=== PATIENT | female | born 1990 | race Caucasian/White ===

== ENCOUNTER 2021-05-16 22:39 | Emergency (ER) | payer OTHER ==
[~2021-05-16] VITALS: Ht 165.1 cm; Wt 91.7 kg
[~2021-05-16 22:39] MED LIST: ADDERALL 20 MG20 M1 PO; GRALISE600 MG PO; NORCO 5-325 TA1 EAC2 PO; SEROQUEL 100 M100 M1 PO; SYNTHROID50 MCG PO; WELLBUTRIN SR150 MG PO; XANAX1 MG PO; ZOFRAN ODT4 MG PO
[2021-05-16 23:15] LABS: URINE BILIRUBIN NEGATIVE (Negative); URINE BLOOD NEGATIVE (Negative); URINE CLARITY CLEAR; URINE COLOR YELLOW; URINE GLUCOSE-RANDOM NEGATIVE (Negative); URINE KETONES NEGATIVE (Negative); URINE LEUKOCYTES-REFLEX NEGATIVE (Negative); URINE NITRITE-REFLEX NEGATIVE (Negative); URINE PROTEIN NEGATIVE (Negative); URINE SPECIFIC GRAVITY 1.025 (1.005-1.030)
[2021-05-16 23:23] LABS: AMP/METHAMP Negative (Negative); BARBITURATES Negative (Negative); BENZODIAZEPINES POSITIVE (Negative); COCAINE Negative (Negative); METHADONE Negative (Negative); OPIATES POSITIVE (Negative); PCP Negative (Negative); THC Negative (Negative)
[2021-05-16 23:27] LABS: HEMATOCRIT 37.4 % (37.0-47.0); HEMOGLOBIN 12.2 gm/dL (12.0-15.0); MCH 28.6 pg (26.0-34.0); MCHC 32.5 g/dL (28.0-37.0); MCV 88.1 fL (80.0-100.0); MPV 7.5 fl. (7.2-11.1); NUCLEATED RBCS 0 /100WBC; PLATELET COUNT* 284 thou/uL (150-400); RBC 4.25 mil/uL (4.20-5.00); RDW-CV 17.8 % (10.5-14.5); WBC 4.8 thou/uL (4.0-11.0)
[2021-05-16 23:30] LABS: CALCIUM 8.4 mg/dL (8.5-10.1); CREATININE 0.7 mg/dL (0.6-1.3); POTASSIUM 3.8 mmol/L (3.5-5.1)
[2021-05-16 23:34] LABS: ALBUMIN 3.6 g/dL (3.4-5.0); TOTAL BILIRUBIN 0.5 mg/dL (<0.1-1.0); TOTAL PROTEIN 7.2 g/dL (6.4-8.2)
[2021-05-17 01:01] LABS: ABSOLUTE EOSINOPHILS 0.7 thou/uL (0.0-0.7); ABSOLUTE LYMPHOCYTES 1.9 thou/uL (0.8-5.3); ABSOLUTE MONOCYTES 0.1 thou/uL (0.0-1.2); ABSOLUTE NEUTROPHILS 2.1 thou/uL (1.6-8.1)
[2021-05-17 01:03] LABS: ANISOCYTOSIS 1+; LARGE PLATELETS OCCASIONAL; PLATELET ESTIMATE ADEQUATE
[2021-05-17 02:31] VITALS: BP 113/67
--- NOTE | 2021-05-17 09:51 | EKG ---
[place] [address] ELECTROCARDIOGRAM REPORT Name: NEL VILLALOBOS [id number] Admission: 05/16/21 Attend Phys: Discharge: 05/17/21 Date of : 88 Date of Service: 05/16/212247 Report #: [id number] THIS REPORT FOR: //name// [facility] ED Test Date: 2021-05-16 Test Time: 22:48:05 Pat Name: NEL VILLALOBOS Department: Room: Gender: Director [employer]: [place] : 1990 Requested By: Mally Gil Order Number: [id number] MD: Sadi Corey Measurements Intervals [place] Rate: 95 P: 65 IA: 134 QRS: -10 QRSD: 102 T: 8 QT: 378 QTc: 475 Interpretive Statements Sinus rhythm Borderline prolonged QT interval No previous ECG available for comparison Electronically Signed On 05-17-2021 9:51:11 CDT by Sadi Corey [email or web address] <ELECTRONICALLY SIGNED> By: Sadi Corey MD, [facility] 05/17/21950 47 47 Sadi Corey MD, FACC /EPI
== END 2021-05-17 02:32 | disposition home or self-care (01) ==
LOC: M.ERS 22:39
PROVIDERS: Personal Emergency Response Attendant
DX: F11.121 Opioid abuse with intoxication delirium (principal); F10.121 Alcohol abuse with intoxication delirium; Z79.891 Long term (current) use of opiate analgesic; Z79.899 Other long term (current) drug therapy